=== PATIENT | female | born 1965 | race Caucasian/White ===

== ENCOUNTER 2016-11-07 23:50 | Emergency (ER) | payer MEDICAID ==
[~2016-11-07] VITALS: Ht 167.6 cm; Wt 97.7 kg
[~2016-11-07 23:50] MED LIST: ALORA0.025 MG/2; MS CONTIN 330 MG/TAB PO; PROAIR RESPICL90 MCG INH; XANAX0.5 M1 PO; ZOFRAN8 MG PO
[2016-11-08] MEDS ORDERED: PREDNISONE10 MG PO (01:15)
[2016-11-08 01:30] VITALS: BP 110/98
[2016-11-08] MEDS ORDERED: CALMOSEPTINE O3.5 GM TP (02:49)
[2016-11-08] MEDS ORDERED: KENALOG-4040 MG/ML IJ (02:50)
== END 2016-11-08 01:30 | disposition home or self-care (01) ==
LOC: ED 23:50
DX: T78.3XXA Angioneurotic edema, initial encounter (principal); L23.7 Allergic contact dermatitis due to plants, except food
CPT/HCPCS: J1200; J2930; J7030

== ENCOUNTER → 2017-01-04 | Outpatient (CLI) | payer MEDICAID ==
[~2017-01-04] MED LIST changes: +CALMOSEPTINE O3.5 GM TP; +KENALOG-4040 MG/ML IJ; +PREDNISONE10 MG PO
== END ==
LOC: RAD 08:47
DX: M25.552 Pain in left hip (principal); M25.562 Pain in left knee; Y92.023 Bedroom in mobile home as the place of occurrence of the external cause; W06.XXXA Fall from bed, initial encounter

== ENCOUNTER 2017-06-22 01:54 | Emergency (ER) | payer MEDICAID ==
[~2017-06-22] VITALS: Ht 167.6 cm; Wt 90.9 kg
[2017-06-22] MEDS ORDERED: ROXICODONE15 M1 PO (02:02)
[2017-06-22 03:06] LABS: EOS # 0.1 (0.04-0.40); EOS % 1.6 % (1.0-5.0); HEMOGLOBIN 10.1 g/dL (12.5-16.0); LYMPH# 1.1 (1.50-4.00); MEAN CELL VOLUME 84 fl (78-100); MEAN CORPUSCULAR HEMOGLOBIN 26 pg (27-31); MEAN CORPUSCULAR HGB CONC 31 g/dL (33-37); MEAN PLATELET VOLUME 9.5 fl (7.4-10.4); MONO # 0.5 (0.20-0.80); NEU # 4.7 (1.40-6.50); PLATELET COUNT 333 K/mm3 (130-400); RED BLOOD COUNT 3.94 M/mm3 (4.10-5.30); RED CELL DISTRIBUTION WIDTH 14.4 % (11.5-14.5); WHITE BLOOD COUNT 6.4 K/mm3 (4.8-10.8)
[2017-06-22 03:26] LABS: CKMB ISOENZYME 0.6 ng/mL (0.6-3.5)
[2017-06-22 03:27] LABS: ALBUMIN 3.3 g/dL (3.5-5.0); ALT/SGPT 30 U/L (9-52); AST-SGOT 19 U/L (14-36); BUN/CREATININE RATIO 22.7 (6.0-26.0); CALCIUM 8.5 mg/dL (8.4-10.2); CARBON DIOXIDE 30 mmol/L (22-30); GLUCOSE 115 mg/dL (65-105); POTASSIUM 4.4 mmol/L (3.6-5.0); SODIUM 141 mmol/L (137-145); TOTAL BILIRUBIN 0.2 mg/dL (0.2-1.3)
[2017-06-22 03:30] LABS: ALCOHOL IN-HOUSE < 10 mg/dL; D-DIMER 1.08 mg/L FEU (0.15-0.50); TROPONIN-I < 0.03 ng/mL (0.00-0.06)
[2017-06-22] MEDS ORDERED: LYRICA100 MG PO (04:07)
[2017-06-22 07:54] VITALS: BP 108/63
== END 2017-06-22 07:46 | disposition home or self-care (01) ==
LOC: ED 01:54
PROVIDERS: Nurse Practitioner Primary Care
DX: I20.9 Angina pectoris, unspecified (principal); F41.9 Anxiety disorder, unspecified
CPT/HCPCS: J1885; Q9967

== ENCOUNTER 2017-08-08 08:02 | Emergency (ER) | payer MEDICAID ==
[~2017-08-08] VITALS: Ht 167.6 cm; Wt 90.9 kg
[~2017-08-08 08:02] MED LIST changes: +LYRICA100 MG PO; +ROXICODONE15 M1 PO
[2017-08-08] MEDS ORDERED: PROAIR HFA0.09 MG/AC IH (08:20)
[2017-08-08] MEDS ORDERED: VENLAFAXINE HYD75 MG PO (08:20)
[2017-08-08] MEDS ORDERED: CELEBREX 1100 MG/CAP (08:20)
[2017-08-08] MEDS ORDERED: IBU600 MG PO (08:20)
[2017-08-08] MEDS ORDERED: XANAX0.5 M1 PO (08:25)
[2017-08-08 08:54] LABS: EOS # 0.2 (0.04-0.40); EOS % 3.8 % (1.0-5.0); HEMATOCRIT 30.6 % (37.0-47.0); HEMOGLOBIN 9.6 g/dL (12.5-16.0); MEAN CELL VOLUME 83 fl (78-100); MEAN CORPUSCULAR HEMOGLOBIN 26 pg (27-31); MEAN CORPUSCULAR HGB CONC 31 g/dL (33-37); MEAN PLATELET VOLUME 9.2 fl (7.4-10.4); MONO # 0.4 (0.20-0.80); NEU # 3.1 (1.40-6.50); PLATELET COUNT 346 K/mm3 (130-400); RED BLOOD COUNT 3.71 M/mm3 (4.10-5.30); RED CELL DISTRIBUTION WIDTH 14.7 % (11.5-14.5); WHITE BLOOD COUNT 4.7 K/mm3 (4.8-10.8)
[2017-08-08 09:06] LABS: ALBUMIN 3.1 g/dL (3.5-5.0); BUN/CREATININE RATIO 21.8 (6.0-26.0); CALCIUM 8.7 mg/dL (8.4-10.2); POTASSIUM 3.6 mmol/L (3.6-5.0); TOTAL BILIRUBIN 0.1 mg/dL (0.2-1.3); TOTAL PROTEIN 6.1 g/dL (6.3-8.2)
[2017-08-08] MEDS ORDERED: KETOROLAC10 MG PO (09:52)
[2017-08-08] MEDS ORDERED: ULTRAM50 M1 PO (09:52)
[2017-08-08 10:05] VITALS: BP 158/102
== END 2017-08-08 10:00 | disposition home or self-care (01) ==
LOC: ED 08:02
PROVIDERS: Physician Assistant
DX: G89.29 Other chronic pain (principal); M25.552 Pain in left hip; M25.561 Pain in right knee; S80.11XA Contusion of right lower leg, initial encounter; M53.3 Sacrococcygeal disorders, not elsewhere classified; R60.0 Localized edema; S99.911A Unspecified injury of right ankle, initial encounter; F41.9 Anxiety disorder, unspecified; K59.00 Constipation, unspecified
CPT/HCPCS: J1885

== ENCOUNTER 2017-10-02 09:53 | Emergency (ER) | payer MEDICAID ==
[~2017-10-02] VITALS: Ht 167.6 cm; Wt 90.9 kg
[~2017-10-02 09:53] MED LIST changes: +CELEBREX 1100 MG/CAP; +IBU600 MG PO; +KETOROLAC10 MG PO; +PROAIR HFA0.09 MG/AC IH; +ULTRAM50 M1 PO; +VENLAFAXINE HYD75 MG PO
[2017-10-02] MEDS ORDERED: LEVOTHYROXINE100 MC1 PO (10:40)
[2017-10-02 11:13] LABS: EOS # 0.2 (0.04-0.40); EOS % 4.9 % (1.0-5.0); HEMATOCRIT 34.2 % (37.0-47.0); HEMOGLOBIN 10.8 g/dL (12.5-16.0); LYMPH# 1.1 (1.50-4.00); MEAN CELL VOLUME 80 fl (78-100); MEAN CORPUSCULAR HEMOGLOBIN 25 pg (27-31); MEAN CORPUSCULAR HGB CONC 32 g/dL (33-37); MEAN PLATELET VOLUME 9.4 fl (7.4-10.4); MONO # 0.4 (0.20-0.80); PLATELET COUNT 318 K/mm3 (130-400); RED BLOOD COUNT 4.26 M/mm3 (4.10-5.30); RED CELL DISTRIBUTION WIDTH 14.4 % (11.5-14.5); WHITE BLOOD COUNT 3.7 K/mm3 (4.8-10.8)
[2017-10-02 11:20] LABS: ALBUMIN 3.5 g/dL (3.5-5.0); CALCIUM 8.9 mg/dL (8.4-10.2); POTASSIUM 3.3 mmol/L (3.6-5.0); TOTAL BILIRUBIN 0.2 mg/dL (0.2-1.3); TOTAL PROTEIN 6.9 g/dL (6.3-8.2)
[2017-10-02 12:48] VITALS: BP 153/101
== END 2017-10-02 13:05 | disposition home or self-care (01) ==
LOC: ED 09:53
PROVIDERS: Physician Assistant
DX: S52.572A Other intraarticular fracture of lower end of left radius, initial encounter for closed fracture (principal); S52.615A Nondisplaced fracture of left ulna styloid process, initial encounter for closed fracture; S62.025A Nondisplaced fracture of middle third of navicular [scaphoid] bone of left wrist, initial encounter for closed fracture; Y04.0XXA Assault by unarmed brawl or fight, initial encounter; Y92.009 Unspecified place in unspecified non-institutional (private) residence as the place of occurrence of the external cause; W18.39XA Other fall on same level, initial encounter; M54.2 Cervicalgia; S09.90XA Unspecified injury of head, initial encounter; M25.552 Pain in left hip; M54.9 Dorsalgia, unspecified; R07.9 Chest pain, unspecified
CPT/HCPCS: J1885

== ENCOUNTER 2018-10-25 12:02 | Emergency (ER) | payer MEDICAID ==
[~2018-10-25 12:02] MED LIST changes: +LEVOTHYROXINE100 MC1 PO
[2018-10-25] MEDS ORDERED: PREDNISONE20 M1 PO (13:09)
[2018-10-25 13:19] VITALS: BP 112/63
== END 2018-10-25 13:21 | disposition home or self-care (01) ==
LOC: ED 12:02
DX: L25.9 Unspecified contact dermatitis, unspecified cause (principal); G89.29 Other chronic pain; Z90.710 Acquired absence of both cervix and uterus
CPT/HCPCS: J1040

== ENCOUNTER 2019-12-20 05:26 | Emergency (ER) | payer MEDICAID ==
[~2019-12-20] VITALS: Ht 167.6 cm; Wt 90.9 kg
[~2019-12-20 05:26] MED LIST changes: +PREDNISONE20 M1 PO
[2019-12-20] MEDS ORDERED: CELEBREX 1100 MG/CAP PO (05:44)
[2019-12-20 06:47] LABS: ALBUMIN 4.2 g/dL (3.5-5.0); POTASSIUM 3.9 mmol/L (3.5-5.1)
[2019-12-20 06:48] LABS: CALCIUM 9.6 mg/dL (8.3-10.5)
[2019-12-20 06:50] LABS: TOTAL PROTEIN 7.2 g/dL (6.4-8.3)
[2019-12-20 06:51] LABS: TOTAL BILIRUBIN 0.2 mg/dL (0.2-1.2)
[2019-12-20 06:54] LABS: BASO # 0.1 (0.02-0.10); EOS % 0.8 % (1.0-5.0); HEMOGLOBIN 12.3 g/dL (12.5-16.0); LYMPH# 1.3 (1.50-4.00); MEAN CELL VOLUME 84 fl (78-100); MEAN CORPUSCULAR HEMOGLOBIN 27 pg (27-31); MEAN CORPUSCULAR HGB CONC 32 g/dL (33-37); MEAN PLATELET VOLUME 9.7 fl (7.4-10.4); MONO # 0.5 (0.20-0.80); PLATELET COUNT 285 K/mm3 (130-400); RED BLOOD COUNT 4.65 M/mm3 (4.10-5.30); RED CELL DISTRIBUTION WIDTH 14.6 % (11.5-14.5); WHITE BLOOD COUNT 4.9 K/mm3 (4.8-10.8)
[2019-12-20 07:02] LABS: D-DIMER 0.3 mg/L FEU (0.15-0.50)
[2019-12-20 07:55] VITALS: BP 108/76
== END 2019-12-20 07:55 | disposition home or self-care (01) ==
LOC: ED 05:26
PROVIDERS: Family Medicine
DX: F41.9 Anxiety disorder, unspecified (principal); F32.9 Major depressive disorder, single episode, unspecified; R25.2 Cramp and spasm; Z90.710 Acquired absence of both cervix and uterus

== ENCOUNTER 2020-10-13 11:23 | Emergency (ER) | payer MEDICAID ==
[~2020-10-13 11:23] MED LIST changes: +CELEBREX 1100 MG/CAP PO
[2020-10-13] MEDS ORDERED: ASPIRIN 81M81 MG/TA2 PO (11:38)
[2020-10-13 12:11] VITALS: BP 144/85
== END 2020-10-13 12:28 | disposition home or self-care (01) ==
LOC: ED 11:23
DX: M54.16 Radiculopathy, lumbar region (principal); G89.29 Other chronic pain; Z79.1 Long term (current) use of non-steroidal anti-inflammatories (NSAID); Z79.82 Long term (current) use of aspirin
CPT/HCPCS: J1885

== ENCOUNTER 2020-11-02 23:48 | Emergency (ER) | payer MEDICAID ==
[~2020-11-02 23:48] MED LIST changes: +ASPIRIN 81M81 MG/TA2 PO
[2020-11-03 00:52] LABS: BASO # 0.08 (0.02-0.10); EOS # 0.08 (0.04-0.40); EOS % 1.4 % (1.0-5.0); HEMATOCRIT 37.4 % (37.0-47.0); HEMOGLOBIN 12.1 g/dL (12.5-16.0); MEAN CELL VOLUME 83 fl (78-100); MEAN CORPUSCULAR HEMOGLOBIN 27 pg (27-31); MEAN CORPUSCULAR HGB CONC 32 g/dL (33-37); MEAN PLATELET VOLUME 8.9 fl (7.4-10.4); MONO # 0.65 (0.20-0.80); NEU # 3.44 (1.40-6.50); PLATELET COUNT 291 K/mm3 (130-400); RED BLOOD COUNT 4.53 M/mm3 (4.10-5.30); RED CELL DISTRIBUTION WIDTH 13.5 % (11.5-14.5); WHITE BLOOD COUNT 5.7 K/mm3 (4.8-10.8)
[2020-11-03 00:55] LABS: ALBUMIN 4.1 g/dL (3.5-5.0); POTASSIUM 3.1 mmol/L (3.5-5.1)
[2020-11-03 00:56] LABS: CALCIUM 9.4 mg/dL (8.3-10.5)
[2020-11-03 00:58] LABS: TOTAL PROTEIN 7.3 g/dL (6.4-8.3)
[2020-11-03 00:59] LABS: TOTAL BILIRUBIN 0.5 mg/dL (0.2-1.2)
[2020-11-03] MEDS ORDERED: POTASSIUM CHLO20 ME4 PO (01:46)
[2020-11-03] MEDS ORDERED: VENLAFAXINE HYD75 M2 PO (01:46)
[2020-11-03 01:54] VITALS: BP 162/96
== END 2020-11-03 01:54 | disposition home or self-care (01) ==
LOC: ED 23:48
PROVIDERS: Physician Assistant
DX: F41.9 Anxiety disorder, unspecified (principal); F32.9 Major depressive disorder, single episode, unspecified; E87.6 Hypokalemia; I10 Essential (primary) hypertension

== ENCOUNTER 2021-06-20 13:33 | Emergency (ER) | payer MEDICAID ==
[~2021-06-20] VITALS: Ht 167.6 cm; Wt 99.8 kg
[~2021-06-20 13:33] MED LIST changes: +POTASSIUM CHLO20 ME4 PO; +VENLAFAXINE HYD75 M2 PO
[2021-06-20 13:51] VITALS: BP 146/86
[2021-06-20 15:50] LABS: BASO # 0.03 K/mm3 (0.02-0.10); EOS # 0.08 K/mm3 (0.04-0.40); EOS % 2.5 % (1.0-5.0); LYMPH# 1.08 K/mm3 (1.50-4.00); MEAN CELL VOLUME 85 fl (78-100); MEAN CORPUSCULAR HEMOGLOBIN 27 pg (27-31); MEAN CORPUSCULAR HGB CONC 31 g/dL (33-37); MEAN PLATELET VOLUME 8.9 fl (7.4-10.4); MONO # 0.33 K/mm3 (0.20-0.80); NEU # 1.71 K/mm3 (1.40-6.50); PLATELET COUNT 244 K/mm3 (130-400); RED BLOOD COUNT 4.11 M/mm3 (4.10-5.30); RED CELL DISTRIBUTION WIDTH 14.6 % (11.5-14.5); WHITE BLOOD COUNT 3.2 K/mm3 (4.8-10.8)
[2021-06-20 16:03] LABS: ALBUMIN 3.7 g/dL (3.5-5.0)
[2021-06-20 16:04] LABS: POTASSIUM 3.9 mmol/L (3.5-5.1); SODIUM 141 mmol/L (136-145)
[2021-06-20 16:05] LABS: CALCIUM 9.2 mg/dL (8.3-10.5)
[2021-06-20 16:06] LABS: GLUCOSE 114 mg/dL (65-105); TOTAL PROTEIN 6.3 g/dL (6.4-8.3)
[2021-06-20 16:07] LABS: CARBON DIOXIDE 26 mmol/L (22-29)
[2021-06-20 16:08] LABS: TOTAL BILIRUBIN 0.3 mg/dL (0.2-1.2)
[2021-06-20 16:11] LABS: AST-SGOT 23 U/L (5-34)
[2021-06-20 16:12] LABS: ALT/SGPT 26 U/L (0-55)
[2021-06-20 16:13] LABS: MAGNESIUM 2.01 mg/dL (1.60-2.60)
[2021-06-20 16:21] LABS: TROPONIN-I < 0.030 ng/mL (<0.030)
[2021-06-20] MEDS ORDERED: EFFEXOR XR75 M2 PO (17:00)
== END 2021-06-20 17:12 | disposition home or self-care (01) ==
LOC: ED 13:33
PROVIDERS: Physician Assistant
DX: F41.9 Anxiety disorder, unspecified (principal); F32.A Depression, unspecified; Z79.899 Other long term (current) drug therapy

== ENCOUNTER 2022-01-15 09:36 | Emergency (ER) | payer MEDICAID ==
[~2022-01-15] VITALS: Ht 167.6 cm; Wt 113.4 kg
[~2022-01-15 09:36] MED LIST changes: +EFFEXOR XR75 M2 PO
[2022-01-15 10:36] LABS: BASO # 0.03 K/mm3 (0.02-0.10); EOS # 0.13 K/mm3 (0.04-0.40); EOS % 1.4 % (1.0-5.0); HEMATOCRIT 36.4 % (37.0-47.0); HEMOGLOBIN 11.6 g/dL (12.5-16.0); LYMPH# 0.92 K/mm3 (1.50-4.00); MEAN CELL VOLUME 85 fl (78-100); MEAN CORPUSCULAR HEMOGLOBIN 27 pg (27-31); MEAN CORPUSCULAR HGB CONC 32 g/dL (33-37); MEAN PLATELET VOLUME 9.5 fl (7.4-10.4); MONO # 0.66 K/mm3 (0.20-0.80); NEU # 7.86 K/mm3 (1.40-6.50); PLATELET COUNT 268 K/mm3 (130-400); RED CELL DISTRIBUTION WIDTH 13.8 % (11.5-14.5); WHITE BLOOD COUNT 9.6 K/mm3 (4.8-10.8)
[2022-01-15 10:40] LABS: SODIUM 137 mmol/L (136-145)
[2022-01-15 10:41] LABS: CALCIUM 9.8 mg/dL (8.3-10.5)
[2022-01-15 10:42] LABS: GLUCOSE 96 mg/dL (65-105); TOTAL PROTEIN 7.4 g/dL (6.4-8.3)
[2022-01-15 10:43] LABS: CARBON DIOXIDE 23 mmol/L (22-29)
[2022-01-15 10:44] LABS: TOTAL BILIRUBIN 0.5 mg/dL (0.2-1.2)
[2022-01-15 10:47] LABS: AST-SGOT 21 U/L (5-34)
[2022-01-15 10:48] LABS: ALT/SGPT 17 U/L (0-55)
[2022-01-15 10:56] LABS: TROPONIN-I < 0.030 ng/mL (<0.030)
[2022-01-15 11:38] LABS: D-DIMER 0.68 mg/L FEU (0.15-0.50)
[2022-01-15 15:40] VITALS: BP 101/64
== END 2022-01-15 15:40 | disposition home or self-care (01) ==
LOC: ED 09:36
PROVIDERS: Nurse Practitioner
DX: F41.9 Anxiety disorder, unspecified (principal); M25.511 Pain in right shoulder; G89.29 Other chronic pain; Z20.822 Contact with and (suspected) exposure to COVID-19
CPT/HCPCS: J1885; Q9967